=== PATIENT | male | born 1955 | race Caucasian/White ===

== ENCOUNTER 2017-10-30 18:19 | Emergency (ER) | payer OTHER ==
[~2017-10-30 18:19] MED LIST: GADOBUTROL 10 ML VIAL IVP ONE
[2017-10-30 18:27] VITALS: TEMP 98.6
--- NOTE | 2017-10-30 19:05 | EDPHY ---
H & P Stated Complaint: f/u from MRI Time Seen by Provider: 10/30/17 18:40 HPI/ROS: HPI: This of 61-year-old male who presents with Chief Complaint: The patient referral for subdural hematoma Location: Left frontoparietal Quality: Subdural hematoma Duration: Unknown Signs and Symptoms: no fever, no nausea, no vomiting, no photophobia, no neck stiffness, no headache, no weakness, no radiation, no trauma Timing: Unknown Severity: Severe Context: Patient presents from outpatient after having an MRI of his brain performed today in preparation to start radiation on Saturday. He was in outpatient MRI from 3-5 p.m. went home and received a call that he needed to return to the emergency room immediately. MRI shows an acute/subacute mixed density left frontal parietal subdural hematoma measuring 13 x 0.7 cm with mild mass effect. Patient reports that he feels at his baseline. He drove himself to and from the emergency room. Denies any complaint. On September 02, 2017 he underwent brain surgery for glioblastoma with Dr. Rafael Bui and then on October 15 he learned that it was stage III-IV. Modifying Factors: None Comment: ROS: see HPI Constitutional: No fever, no chills, no weight loss Eyes: No blurred vision Respiratory: No shortness of breath, no cough Cardiovascular: No chest pain, no palpitations Gastrointestinal: No nausea, no vomiting, no diarrhea, no hematemesis, no blood in stool Genitourinary: No dysuria, no blood in urine Extremities: No myalgias, no edema Neurologic: No weakness, no numbness Skin: No rashes, no petechiae Hematologic: No bruising, no bleeding MEDICAL/SURGICAL/SOCIAL HISTORY: Medical history: Glioblastoma Surgical history: Craniotomy Social history: Employed. CONSTITUTIONAL: awake and alert, no obvious distress HEENT: Remote incision left frontoparietal without any signs of erythema/ fluctuance/discharge and normocephalic, PERRL, EOMI. Tympanic membranes clear. Oropharynx clear, no exudate and moist pink mucosa. Airway patent. No lymphadenopathy. No meningismus. Cardiovascular: Normal S1/S2, regular rate, regular rhythm, without murmur rub or gallop. PULMONARY/CHEST: Symmetrical and nontender. Clear to auscultation bilaterally. Good air movement. No accessory muscle usage. ABDOMEN: Soft, nondistended, nontender, no rebound, no guarding, no peritoneal signs, no masses or organomegaly. No CVAT. EXTREMITIES: 2/2 pulses, strength 5/5, no deformities, no clubbing, no cyanosis or edema. NEUROLOGICAL: no focal neuro deficits. GCS 15. SKIN: Warm and dry, no erythema. no rash. Good capillary refill. Source: Patient, Old records Exam Limitations: No limitations - Personal History Current Tetanus/Diphtheria Vaccine: Unsure Current Tetanus Diphtheria and Acellular Pertussis (TDAP): Unsure - Medical/Surgical History Hx Asthma: No Hx Chronic Respiratory Disease: No Hx Diabetes: No Hx Cardiac Disease: No Hx Renal Disease: No Hx Cirrhosis: No Hx Alcoholism: No Hx HIV/AIDS: No Hx Splenectomy or Spleen Trauma: No Other PMH: brain tumor with surgery, - Social History Smoking Status: Former smoker Constitutional: Initial Vital Signs Temperature (C) 37 C 10/30/17 18:24 Heart Rate 71 10/30/17 18:24 Respiratory Rate 16 10/30/17 18:24 Blood Pressure 146/87 H 10/30/17 18:24 O2 Sat (%) 96 10/30/17 18:24 O2 Delivery Mode Room Air Allergies/Adverse Reactions: No Known Allergies Allergy (Unverified 10/30/17 18:24) Home Medications: Medication Instructions Recorded [facility] 10/30/17 Medical Decision Making - Diagnostics Imaging Results: Imaging Impressions Brain MRI 10/30/17 15:30 Impression: 1. Acute/subacute mixed density left frontoparietal subdural hematoma measuring 13 x 0.7 cm with mild mass effect. Recommend neurosurgery consult. 2. Left temporal lobe surgical resection cavity with adjacent nodular 10 x 6 mm focus which suggests residual recurrent glioma. 3. No prior studies for comparison. Findings and recommendations given to Dr. Ibanez monomer purification operator for Billy Napoles MD at 1741 hour, 10/30/2017. Final report concurs with initial preliminary interpretation. A test result has been communicated to a licensed care provider and documented in the [employer] Critical Result system on 10/30/2017 17:41, Message ID [id number]. ED Course/Re-evaluation: No new neurological deficits from baseline Spoke with Dr. Blake Harden regarding the MRI results today showing left frontoparietal subdural hematoma. He reviewed the images on line. He reports that this is stable and patient is okay to be discharged home. Patient is to stop taking his aspirin daily and start taking TXA 650 mg twice daily x 1 month. Prescription provided to patient. He is to call the office tomorrow for follow-up appointment next week and repeat head CT scan at that time. Patient is a lot of questions regarding further treatment, notifying Oncology, etc... This patient was seen under the supervision of my secondary supervising physician. I evaluated care for this patient independently. Discussed this patient with Dr. Land who did not see the patient. Differential Diagnosis: Head injury including but not limited to concussion, skull fracture, intraparenchymal contusion, subarachnoid, subdural and epidural hematoma. Departure - Departure Disposition: Home, Routine, Self-Care Clinical Impression: Subdural hematoma, Glioblastoma, History of brain surgery Condition: Good Instructions: Subdural Hematoma (ED) Additional Instructions: Stop taking your baby aspirin immediately. Start taking tranexamic acid twice daily x [address] Guerrero office tomorrow for your follow-up appointment date and time next week. During this appointment, you will have a repeat head CT scan. Referrals: Rafael Bui MD [Medical Doctor] - As per Instructions
[2017-10-30 19:39] VITALS: BP 142/94; PULSE 74; RESP 18; O2SAT 94
== END 2017-10-30 19:38 | disposition home or self-care (01) ==
DX: M79.81 Nontraumatic hematoma of soft tissue (principal); C71.9 Malignant neoplasm of brain, unspecified; Z98.890 Other specified postprocedural states; Z87.891 Personal history of nicotine dependence
CPT/HCPCS: A9585